=== PATIENT | female | born 1970 ===

== ENCOUNTER 2017-07-06 17:43 | Emergency (ER) | payer MEDICAID, OTHER ==
--- NOTE | 2017-07-06 18:16 | EDPHY ---
H & P Time Seen by Provider: 07/06/17 18:05 HPI/ROS: CHIEF COMPLAINT: Cough, sore throat, body aches HISTORY OF PRESENT ILLNESS: The patient is a 47-year-old female who comes to the emergency department complaining of a cough, sore throat and body aches that began about 5 days ago. Her sore throat is now improved. No nausea vomiting. She is not sure she has had a fever could she has been taking ibuprofen frequently. Her daughter was diagnosed with influenza last week. She feels short of breath if she exerts herself. Her no significant cardiac or pulmonary history. She denies chest pain. No leg pain or swelling or travel. No smoker. She has also had a slightly runny nose. REVIEW OF SYSTEMS: Constitutional: See HPI EENTM: See HPI Respiratory: See HPI Cardiac: denies: chest pain, irregular heart rate, lightheadedness, palpitations Gastrointestinal/Abdominal: denies: abdominal pain, diarrhea, nausea, vomiting, blood streaked stools Genitourinary: denies: dysuria, frequency, hematuria, pain Musculoskeletal: denies: joint pain, muscle pain Skin: denies: lesions, rash, jaundice, bruising Neurological: denies: headache, numbness, paresthesia, tingling, dizziness, weakness Hematologic/Lymphatic: denies: blood clots, easy bleeding, easy bruising Immunologic/allergic: denies: HIV/AIDS, transplant EXAM: GENERAL: Well-appearing, well-nourished and in no acute distress. HEAD: Atraumatic, normocephalic. EYES: Pupils equal round and reactive to light, extraocular movements intact, sclera anicteric, conjunctiva are normal. ENT: TMs normal, nares patent, oropharynx clear without exudates. Moist mucous membranes. NECK: Normal range of motion, supple without lymphadenopathy or JVD. LUNGS: Breath sounds clear to auscultation bilaterally and equal. No wheezes rales or rhonchi. HEART: Regular rate and rhythm without murmurs, rubs or gallops. ABDOMEN: Soft, nontender, normoactive bowel sounds. No guarding, no rebound. No masses appreciated. BACK: No CVA tenderness, no spinal tenderness, step-offs or deformities EXTREMITIES: Normal range of motion, no pitting or edema. No clubbing or cyanosis. NEUROLOGICAL: Cranial nerves II through XII grossly intact. Normal speech, normal gait. 5/5 strength, normal movement in all extremities, normal sensation PSYCH: Normal mood, normal affect. SKIN: Warm, dry, normal turgor, no visible rashes or lesions. Source: Patient, Family, Recovery Manager - Medical/Surgical History Hx Asthma: No Hx Chronic Respiratory Disease: No Hx Diabetes: No Hx Cardiac Disease: No Hx Renal Disease: No Hx Cirrhosis: No - Family History Significant Family History: No pertinent family hx - Social History Smoking Status: Never smoked Alcohol Use: Sober Constitutional: Initial Vital Signs Temperature (C) 36.4 C 07/06/17 18:10 Heart Rate 76 07/06/17 18:10 Respiratory Rate 18 07/06/17 18:10 Blood Pressure 141/84 H 07/06/17 18:10 O2 Sat (%) 95 07/06/17 18:10 O2 Delivery Mode Room Air Allergies/Adverse Reactions: No Known Allergies Allergy (Unverified 07/06/17 18:21) Home Medications: Medication Instructions Recorded Diabetes Medications 07/06/17 Levothyroxine 07/06/17 guaiFENesin/PSEUDOEPHEDRNE HCL 1 each PO BID #10 tab.er.12h 07/06/17 [Mucinex D ER Tablet] Medical Decision Making ED Course/Re-evaluation: The patient is well-appearing but has symptoms consistent with influenza as well as a recent sick contacts. It is too late for her to benefit from Tamiflu however we discussed hydration and continuing anti-inflammatories and I will also prescribe her Mucinex. She is happy with this plan and declines further workup or testing at this time. She also states that she took several doses of left over amoxicillin without any improvement. Differential Diagnosis: Partial list of the Differential diagnosis considered include but were not limited to; influenza, viral syndrome, bronchitis and although unlikely based on the history and physical exam, I also considered pneumonia, sinusitis, meningitis, sepsis, endocarditis. I discussed these differential diagnoses and the plan with the patient as well as the usual and expected course. The patient understands that the diagnosis is provisional and that in medicine we are not always correct and that further workup is often warranted. Usual and customary warnings were given. All of the patient's questions were answered. The patient was instructed to return to the emergency department should the symptoms at all worsen or return, otherwise to followup with the physician as we discussed. Departure - Departure Disposition: Home, Routine, Self-Care Clinical Impression: Influenza Condition: Fair Instructions: Influenza (ED) Referrals: Ivana Galvan DO [Doctor of Osteopathy] - As per Instructions Prescriptions: guaiFENesin/PSEUDOEPHEDRNE HCL [Mucinex D ER Tablet] 1 each PO BID #10 tab.er.12h Print Language: Yoruba
[2017-07-06 18:21] VITALS: O2SAT 95
[2017-07-06 18:52] VITALS: BP 132/84; PULSE 80; RESP 16; TEMP 97.9
== END 2017-07-06 18:48 | disposition home or self-care (01) ==
LOC: CED 17:43
DX: J11.1 Influenza due to unidentified influenza virus with other respiratory manifestations (principal)